=== PATIENT | male | born 1985 | race African-American/Black ===

== ENCOUNTER 2016-12-28 02:57 | Emergency (ER) | payer BC ==
[~2016-12-28] VITALS: Ht 190.5 cm; Wt 99.8 kg
[~2016-12-28 02:57] MED LIST: FLEXERIL PO; HYDROCODONE-AP1 EAC6 PO; IBUPROFEN 600600 M1 PO; NOHOMEMEDICATIONS; NORCO 5-325 TA1 EACH PO; VALIUM5 MG PO
[2016-12-28 02:58] VITALS: BP 136/81
[2016-12-28] MEDS ORDERED: NAPROSYN500 MG PO (03:53)
[2016-12-28] MEDS ORDERED: ROBAXIN500 MG PO (03:53)
== END 2016-12-28 04:05 | disposition home or self-care (01) ==
LOC: ER 02:57
DX: M43.6 Torticollis (principal)

== ENCOUNTER 2017-01-21 04:42 | Emergency (ER) | payer BC ==
[~2017-01-21] VITALS: Ht 190.5 cm; Wt 106.6 kg
[~2017-01-21 04:42] MED LIST changes: +NAPROSYN500 MG PO; +ROBAXIN500 MG PO
[2017-01-21 05:16] LABS: ABSOLUTE NEUTROPHILS 2.5 thou/uL (1.4-8.2); BASOPHILS 0.7 % (0.0-2.0); EOSINOPHILS 5.4 % (0.0-3.0); HEMATOCRIT 42.1 % (42.0-52.0); HEMOGLOBIN 14.2 gm/dL (14.0-18.0); LYMPHOCYTES 38.4 % (24.0-44.0); MCH 29.4 pg (26.0-34.0); MCHC 33.7 g/dL (28.0-37.0); MCV 87.3 fL (80.0-100.0); PLATELET COUNT 263 thou/uL (150-400); POLYS 44.5 % (36.0-66.0); RBC 4.82 mil/uL (4.50-6.00); RDW 14.1 % (10.5-14.5); WBC 5.5 thou/uL (4.0-11.0)
[2017-01-21 05:19] LABS: MANUAL DIFF NO
[2017-01-21 05:21] LABS: CALCIUM 9.2 mg/dL (8.5-10.1); CREATININE 0.9 mg/dL (0.7-1.3); POTASSIUM 4.1 mmol/L (3.5-5.1)
[2017-01-21 05:25] LABS: ALBUMIN 3.9 g/dL (3.4-5.0); TOTAL BILIRUBIN 0.2 mg/dL (<0.1-1.0); TOTAL PROTEIN 7.8 g/dL (6.4-8.2)
[2017-01-21] MEDS ORDERED: ROBAXIN500 MG PO (06:04)
[2017-01-21] MEDS ORDERED: TRAMADOL 50 MG50 MG PO (06:04)
[2017-01-21] MEDS ORDERED: NAPROSYN500 MG PO (06:04)
[2017-01-21 06:15] VITALS: BP 129/72
== END 2017-01-21 06:15 | disposition home or self-care (01) ==
LOC: ER 04:42
PROVIDERS: Emergency Medicine
DX: M54.9 Dorsalgia, unspecified (principal); R10.10 Upper abdominal pain, unspecified; F10.99 Alcohol use, unspecified with unspecified alcohol-induced disorder

== ENCOUNTER 2019-06-28 21:13 | Emergency (ER) | payer BC ==
[~2019-06-28] VITALS: Ht 190.5 cm; Wt 111.1 kg
[~2019-06-28 21:13] MED LIST changes: +TRAMADOL 50 MG50 MG PO
[2019-06-28 21:14] VITALS: BP 139/87
[2019-06-28] MEDS ORDERED: FLEXERIL PO (21:19)
[2019-06-28] MEDS ORDERED: MEDROLDOSEPACK PO (21:45)
[2019-06-28] MEDS ORDERED: NORCO 7.5-3251 EACH PO (21:45)
[2019-06-28] MEDS ORDERED: LIDOCAINE PAIN1 EACH TOP (21:45)
== END 2019-06-28 22:08 | disposition home or self-care (01) ==
LOC: ER 21:13
DX: M54.5 Low back pain (principal)

== ENCOUNTER 2019-07-16 10:06 | Emergency (ER) | payer BC ==
[~2019-07-16] VITALS: Ht 190.5 cm; Wt 113.4 kg
[~2019-07-16 10:06] MED LIST changes: +LIDOCAINE PAIN1 EACH TOP; +MEDROLDOSEPACK PO; +NORCO 7.5-3251 EACH PO
[2019-07-16 10:12] VITALS: BP 159/102
[2019-07-16] MEDS ORDERED: NORCO 10-325 T1 EACH PO (10:52)
[2019-07-16] MEDS ORDERED: MEDROLDOSEPACK PO (10:52)
[2019-07-16] MEDS ORDERED: CYCLOBENZAPRINE5 MG PO (10:52)
== END 2019-07-16 11:50 | disposition home or self-care (01) ==
LOC: ER 10:06
DX: M54.5 Low back pain (principal); Z98.890 Other specified postprocedural states; Z87.39 Personal history of other diseases of the musculoskeletal system and connective tissue